=== PATIENT | male | born 1955 | race Hispanic/Latino ===

== ENCOUNTER 2018-08-11 22:56 | Emergency (ER) | payer SELFPAY ==
[2018-08-11 23:31] LABS: #Basophils 0.1 thou/uL (0.0-0.2); #Eosinphils 0.6 thou/uL (0.0-0.7); #Lymphocytes 1.7 thou/uL (1.20-3.40); #Monocytes 0.8 thou/uL (0.11-0.59); #Neutrophils 5.2 thou/uL (1.40-6.50); %Basophils 1.2 % (0.0-1.0); %Eosinophils 7.6 % (0.0-10.0); %Lymphocytes 20.4 % (21.0-51.0); %Neutrophils 61.9 % (42.0-75.0); Hemoglobin 15.5 g/dL (14.0-18.0); Mean Corpuscular HGB CONC 34.6 g/dL (32.0-36.0); Mean Corpuscular Hemoglobin 30.8 pg (27.0-31.0); Mean Corpuscular Volume 88.8 fL (78.0-98.0); Mean Platelet Volume 6.7 fL (7.4-10.4); Platelet Count 294 thou/uL (130-400); RBC Distribution Width 11.4 % (11.5-14.5); Red Blood Cell (RBC) Count 5.03 mill/uL (4.70-6.10); White Blood Cell (WBC) Count 8.3 thou/uL (4.8-10.8)
[2018-08-11] MEDS ORDERED: Diazepam 5 MG TAB ONE (23:37)
[2018-08-11 23:50] LABS: ALT (SGPT) 21 U/L (8-55); AST (SGOT) 17 U/L (5-34); Albumin 4.4 g/dL (3.4-4.8); Alkaline Phosphatase 48 U/L (40-150); Anion Gap 12 mmol/L (10-20); BUN (Urea Nitrogen) 18 mg/dL (8.4-25.7); Calc. Creatinine Clearance 0 mL/min (70-130); Calcium 9.2 mg/dL (7.8-10.44); Carbon Dioxide 24 mmol/L (23-31); Chloride 104 mmol/L (98-107); Estimated GFR-MDRD 63; Globulin 2.7 g/dL (2.4-3.5); Glucose 143 mg/dL (80-115); Potassium 4.2 mmol/L (3.5-5.1); Protein, Total 7.1 g/dL (5.8-8.1); Sodium 136 mmol/L (136-145)
--- NOTE | 2018-08-12 00:06 | RAD ---
LUMBAR SPINE THREE VIEWS: 08/11/18 HISTORY: Back pain and syncope following trauma. Generalized disc osteophytosis and facet arthrosis changes are noted. No acute fracture or dislocatio n or significant malalignment. IMPRESSION: Lumbar spondylosis. No fracture or dislocation. POS: [facility]
[2018-08-12] MEDS ORDERED: Ketorolac Tromethamine 30 MG/ML VIAL ONE (00:16)
== END 2018-08-12 01:39 | disposition home or self-care (01) ==
LOC: ERS 22:56
DX: R55 Syncope and collapse (principal); M54.5 Low back pain; E11.9 Type 2 diabetes mellitus without complications; I10 Essential (primary) hypertension; E78.00 Pure hypercholesterolemia, unspecified; Z79.82 Long term (current) use of aspirin; W18.30XA Fall on same level, unspecified, initial encounter; Z79.84 Long term (current) use of oral hypoglycemic drugs; Z79.899 Other long term (current) drug therapy
CPT/HCPCS: 36415; 72100; 80053; 84484; 85025; 93005; 96374; J1885

== ENCOUNTER 2021-07-04 05:08 | Inpatient (IN) | payer SELFPAY ==
[2021-07-04] MEDS ORDERED: Morphine 4 MG/ML VIAL ONE (05:29)
[2021-07-04] MEDS ORDERED: Ondansetron PF 4 MG/2 ML Vial ONE ×2 (05:29→13:50)
[2021-07-04 05:45] LABS: #Eosinphils 0.2 thou/uL (0.0-0.7); #Monocytes 0.7 thou/uL (0.11-0.59); #Neutrophils 9.4 thou/uL (1.40-6.50); %Basophils 0.4 % (0.0-1.0); %Eosinophils 1.9 % (0.0-10.0); %Lymphocytes 16.1 % (21.0-51.0); %Monocytes 5.7 % (0.0-10.0); Hemoglobin 17.3 g/dL (14.0-18.0); Mean Corpuscular HGB CONC 34.8 g/dL (32.0-36.0); Mean Corpuscular Hemoglobin 31.3 pg (27.0-31.0); Mean Corpuscular Volume 90.1 fL (78.0-98.0); Platelet Count 318 thou/uL (130-400); RBC Distribution Width 11.6 % (11.5-14.5); Red Blood Cell (RBC) Count 5.51 mill/uL (4.70-6.10); White Blood Cell (WBC) Count 12.4 thou/uL (4.8-10.8)
[2021-07-04 06:11] LABS: ALT (SGPT) 31 U/L (8-55); AST (SGOT) 15 U/L (5-34); Albumin 4.7 g/dL (3.4-4.8); Alkaline Phosphatase 54 U/L (40-110); Anion Gap 13 mmol/L (10-20); BUN (Urea Nitrogen) 18 mg/dL (8.4-25.7); Bilirubin, Total 1.3 mg/dL (0.2-1.2); Calc. Creatinine Clearance 0 mL/min (70-130); Calcium 10.5 mg/dL (7.8-10.44); Carbon Dioxide 23 mmol/L (23-31); Chloride 102 mmol/L (98-107); Glucose 194 mg/dL (80-115); Protein, Total 7.7 g/dL (5.8-8.1); Sodium 134 mmol/L (136-145)
[2021-07-04 07:02] LABS: Bilirubin Negative (Negative); Blood, Urine Negative (Negative); Clarity Clear (Clear); Glucose, Urine (Dipstick) Normal (Negative); Ketone, Urine Negative (Negative); Leukocyte Negative Leu/uL (Negative); Nitrite Negative (Negative); Protein, Urine (Dipstick) 20 mg/dL (Neg-Trace); Specific Gravity, Urine 1.032 (1.002-1.036); Urobilinogen Normal mg/dL (Less than 2)
[2021-07-04] MEDS ORDERED: Fentanyl 100 MCG/2 ML VIAL ONE ×2 (07:41→12:58)
[2021-07-04 08:31] LABS: Lactic Acid 1.3 mmol/L (0.5-2.2)
[2021-07-04] MEDS ORDERED: Ketorolac Tromethamine 30 MG/ML VIAL ONE (09:20)
[2021-07-04] MEDS ORDERED: Piperacillin/Tazobactam 4.5 GM VIAL ONE (09:20)
[2021-07-04] MEDS ORDERED: Sodium Chloride 0.9% 100 ML ONE (09:20)
[2021-07-04 10:05] LABS: SARS-CoV-2 NAA Rapid Test Not Detected (NotDetected)
[2021-07-04] MEDS ORDERED: ISOVUE-370 76%-LOCM 1 ML ONE (11:46)
[2021-07-04] MEDS ORDERED: EPINEPHrine 1 MG/ML AMP ONE (13:16)
[2021-07-04] MEDS ORDERED: Bupivacaine PF 0.5% 30 ML VIAL ONE (13:16)
[2021-07-04] MEDS ORDERED: Dexamethasone 20 MG/5 ML VIAL ONE (13:50)
[2021-07-04] MEDS ORDERED: Succinylcholine 200 MG/10 ml SYRINGE FS ONE (13:50)
[2021-07-04] MEDS ORDERED: Glycopyrrolate 0.2 MG/ML 5 ML SYRINGE ONE (13:50)
[2021-07-04] MEDS ORDERED: PROPOFOL 200 MG/20 ML VIAL ONE (13:50)
[2021-07-04] MEDS ORDERED: Lidocaine 1% PF 5 ML VIAL ONE (13:50)
[2021-07-04] MEDS ORDERED: Rocuronium Bromide 10 MG/ML (10ML VIAL) ONE (13:50)
[2021-07-04] MEDS ORDERED: HYDROmorphone 2 MG/ML VIAL ONE (14:01)
[2021-07-04] MEDS ORDERED: Ondansetron PF 4 MG/2 ML Vial IVP PRN (14:33)
[2021-07-04] MEDS ORDERED: Morphine 4 MG/ML VIAL SLOW IVP PRN ×2 (14:33→17:33)
[2021-07-04] MEDS ORDERED: hydrALAZINE 20 MG/ML VIAL SLOW IVP PRN (14:33)
[2021-07-04] MEDS ORDERED: Lorazepam 2 MG/ML VIAL SLOW IVP PRN (14:33)
[2021-07-04] MEDS ORDERED: Dextrose 50% Abboject 50 ML SYRINGE SLOW IVP PRN (14:37)
[2021-07-04] MEDS ORDERED: Dextrose 5% in Water 1,000 ML IV PRN (14:37)
[2021-07-04] MEDS ORDERED: Ketorolac Tromethamine 30 MG/ML VIAL IVP PRN (14:37)
[2021-07-04] MEDS ORDERED: HumaLOG 300 UNITS/3 ML VIAL SC PRN (14:37)
[2021-07-04] MEDS ORDERED: Promethazine HCl 25 MG/ML VIAL IVPB PRN (14:38)
[2021-07-04] MEDS ORDERED: Ondansetron HCl/PF 4 MG/2 ML Vial IVP PRN (14:38)
[2021-07-04] MEDS ORDERED: HYDROmorphone 2 MG/ML VIAL SLOW IVP PRN (14:38)
[2021-07-04] MEDS ORDERED: Meperidine HCl/PF 25 MG/ML VIAL SLOW IVP PRN (14:38)
[2021-07-04] MEDS ORDERED: Promethazine HCl 25 MG/ML VIAL IM PRN (14:38)
[2021-07-04] MEDS ORDERED: Ketorolac Tromethamine 30 MG/ML VIAL IVP SCH (14:45)
[2021-07-04 16:17] VITALS: BMI 27.6
[2021-07-04] MEDS: Sodium Chloride 0.9% 1,000 ML IV SCH (18:00)
[2021-07-04] MEDS: Enoxaparin Sodium 40 MG/0.4 ML SYRINGE SC SCH (20:20)
[2021-07-04] MEDS: Famotidine/PF 20 mg/2ml Vial SLOW IVP SCH (20:20)
[2021-07-05] MEDS: Sodium Chloride 0.9% 1,000 ML IV SCH ×3 (00:14→15:45)
[2021-07-05 06:02] LABS: #Lymphocytes 0.9 thou/uL (1.20-3.40); #Monocytes 0.6 thou/uL (0.11-0.59); #Neutrophils 8.7 thou/uL (1.40-6.50); %Basophils 0.1 % (0.0-1.0); %Eosinophils 0.1 % (0.0-10.0); %Lymphocytes 9.1 % (21.0-51.0); %Monocytes 5.8 % (0.0-10.0); %Neutrophils 84.9 % (42.0-75.0); Hemoglobin 14.5 g/dL (14.0-18.0); Mean Corpuscular HGB CONC 34.6 g/dL (32.0-36.0); Mean Corpuscular Volume 92.5 fL (78.0-98.0); Platelet Count 272 thou/uL (130-400); RBC Distribution Width 11.6 % (11.5-14.5); Red Blood Cell (RBC) Count 4.52 mill/uL (4.70-6.10); White Blood Cell (WBC) Count 10.3 thou/uL (4.8-10.8)
[2021-07-05 06:18] LABS: ALT (SGPT) 20 U/L (8-55); AST (SGOT) 13 U/L (5-34); Albumin 3.7 g/dL (3.4-4.8); Alkaline Phosphatase 41 U/L (40-110); Anion Gap 11 mmol/L (10-20); BUN (Urea Nitrogen) 15 mg/dL (8.4-25.7); Bilirubin, Total 1.5 mg/dL (0.2-1.2); Calc. Creatinine Clearance 100 mL/min (70-130); Calcium 9.1 mg/dL (7.8-10.44); Carbon Dioxide 24 mmol/L (23-31); Chloride 106 mmol/L (98-107); Globulin 2.3 g/dL (2.4-3.5); Glucose 156 mg/dL (80-115); Potassium 4.8 mmol/L (3.5-5.1); Sodium 136 mmol/L (136-145)
[2021-07-05] MEDS: Famotidine/PF 20 mg/2ml Vial SLOW IVP SCH ×2 (09:37→20:19)
[2021-07-05] MEDS: Enoxaparin Sodium 40 MG/0.4 ML SYRINGE SC SCH (20:19)
[2021-07-06] MEDS ORDERED: metFORMIN 500 MG TAB PO SCH (08:00)
[2021-07-06 08:13] VITALS: BP 147/84; TEMP 98.5
[2021-07-06] MEDS ORDERED: Acetaminophen 500 MG TAB PO PRN (08:13)
[2021-07-06] MEDS ORDERED: Ibuprofen 600 MG TAB PO PRN (08:13)
[2021-07-06] MEDS: Famotidine/PF 20 mg/2ml Vial SLOW IVP SCH (08:58)
[2021-07-06] MEDS ORDERED: Loratadine 10 MG TAB PO SCH (09:00)
[2021-07-06] MEDS ORDERED: Ascorbic Acid 500 mg Chewable Tablet PO SCH (09:00)
[2021-07-06] MEDS ORDERED: Lisinopril/Hydrochlorothiazide 20 mg/12.5 mg Tablet PO SCH (09:00)
[2021-07-06] MEDS ORDERED: Polyethylene Glycol 3350 17 GM Packet PO SCH (09:00)
[2021-07-06] MEDS ORDERED: Cyanocobalamin (Vitamin B-12) 1,000 MCG TAB PO SCH (09:00)
[2021-07-06] MEDS ORDERED: Aspirin 81 mg Enteric Coated Tablet PO SCH (09:00)
== END 2021-07-06 10:45 | disposition home or self-care (01) | DRG 355 ==
LOC: ERS 05:08 → SJJU 14:40
PROVIDERS: ADMIT Specialist; ATTEND Specialist
PROC: 0WQF4ZZ Repair Abdominal Wall, Percutaneous Endoscopic Approach (ICD-10-PCS; principal; 2021-07-04)
PROC: 0D9670Z Drainage of Stomach with Drainage Device, Via Natural or Artificial Opening (ICD-10-PCS; 2021-07-04)
DX: K46.0 Unspecified abdominal hernia with obstruction, without gangrene (principal); Z20.822 Contact with and (suspected) exposure to COVID-19; E11.9 Type 2 diabetes mellitus without complications; I10 Essential (primary) hypertension; E78.00 Pure hypercholesterolemia, unspecified; Z79.82 Long term (current) use of aspirin; Z79.84 Long term (current) use of oral hypoglycemic drugs; Z79.899 Other long term (current) drug therapy; Z88.8 Allergy status to other drugs, medicaments and biological substances
CPT/HCPCS: 36415; 36416; 71045; 74018; 74022; 74177; 74250; 76705; 80053; 81003; 83605; 83690; 85025; 87040; 87086; 93005; 94760; 96365; 96375; J0171; J1100; J1170; J1650; J1885; J2270; J2405; J2543; J2704; J3010; J3490; J7050; Q9966; S0020; S0028; U0002

== ENCOUNTER 2023-06-15 07:22 | Outpatient (CLI) | payer MEDICARE | END 2023-06-15 07:23 | disposition home or self-care (01) | LOC: ULT 07:22 | PROVIDERS: ATTEND Nurse Practitioner Family | DX: R17 Unspecified jaundice (principal); K76.9 Liver disease, unspecified | CPT/HCPCS: 76700 ==

== ENCOUNTER 2024-01-11 21:38 | Emergency (ER) | payer MEDICARE ==
[~2024-01-11 21:38] MED LIST: Iopamidol 370 76% 100 ML VIAL ONE
[2024-01-11 22:58] LABS: #Basophils 0.05 10x3/uL (0.0-0.2); %Basophils 0.4 % (0.0-1.0); %Eosinophils 2.5 % (0.0-10.0); %Lymphocytes 18.6 % (21.0-51.0); %Monocytes 5.5 % (0.0-10.0); %Neutrophils 72.6 % (42.0-75.0); Hematocrit 45.5 % (42.0-52.0); Hemoglobin 15.9 g/dL (14.0-18.0); Mean Corpuscular HGB CONC 34.9 g/dL (32.0-36.0); Mean Corpuscular Hemoglobin 30.6 pg (27.0-31.0); Mean Corpuscular Volume 87.5 fL (78.0-98.0); Mean Platelet Volume 9.9 fL (7.4-10.4); Platelet Count 286 10x3/uL (130-400); RBC Distribution Width 12.9 % (11.5-14.5)
[2024-01-11 23:30] LABS: ALT (SGPT) 25 U/L (8-55); AST (SGOT) 17 U/L (5-34); Albumin 4.9 g/dL (3.4-4.8); Alkaline Phosphatase 56 U/L (40-110); Anion Gap 18 mmol/L (10-20); BUN (Urea Nitrogen) 27 mg/dL (8.4-25.7); Bilirubin, Total 1.9 mg/dL (0.2-1.2); Calc. Creatinine Clearance 0 mL/min (70-130); Calcium 10.2 mg/dL (7.8-10.44); Carbon Dioxide 19 mmol/L (23-31); Chloride 105 mmol/L (98-107); Estimated GFR 56; Globulin 2.8 g/dL (2.4-3.5); Glucose 146 mg/dL (80-115); Potassium 4.8 mmol/L (3.5-5.1); Protein, Total 7.7 g/dL (5.8-8.1); Sodium 137 mmol/L (136-145)
[2024-01-11] MEDS ORDERED: Ketorolac Tromethamine 30 MG (1 mL) VIAL ONE (23:30)
[2024-01-11] MEDS ORDERED: Morphine 4 MG/ML VIAL ONE (23:30)
[2024-01-12] MEDS ORDERED: Amoxicillin/Potassium Clav 875 MG TAB ONE (02:57)
== END 2024-01-12 03:01 | disposition home or self-care (01) ==
LOC: ERS 21:38
DX: K04.7 Periapical abscess without sinus (principal); E11.9 Type 2 diabetes mellitus without complications; I10 Essential (primary) hypertension
CPT/HCPCS: 70491; 80053; 85025; J1885; J2270; Q9967; 36415; 96361; 96374; 96375